=== PATIENT | female | born 1990 | race Caucasian/White ===

== ENCOUNTER 2017-05-30 16:54 | Inpatient (IN) | payer OTHER ==
[~2017-05-30] VITALS: Ht 162.7 cm; Wt 111.4 kg
[2017-06-15] VITALS (18 sets, daily range): BP systolic 96–136; BP diastolic 57–84; PULSE 51–106; TEMP 97.6–98
[2017-06-15] MEDS ORDERED: PRENATAL (06:44)
[2017-06-15 06:57] LABS: BASO % 0.3 % (0.0-2.0); EOS # 0.1 (0.0-0.7); EOS % 0.7 % (0-4.0); GRAN # 5.6 (1.4-6.5); GRAN % 73.2 % (42.2-75.2); HEMATOCRIT 35.2 % (37.0-47.0); HEMOGLOBIN 11.9 g/dl (12.5-16.0); LYMPH # 1.3 (1.2-3.4); LYMPH % 16.5 % (20.0-51.0); MEAN CELL VOLUME 85 fl (80.0-100.0); MEAN CORPUSCULAR HEMOGLOBIN 29 pg (27.0-31.0); MEAN CORPUSCULAR HGB CONC 34 g/dl (33.0-37.0); MEAN PLATELET VOLUME 10.9 fl (7.4-10.4); MONO # 0.6 (0.1-0.6); MONO % 8.2 % (1.7-9.3); PLATELET COUNT 191 K/mm3 (130-400); RED BLOOD COUNT 4.12 M/mm3 (4.10-5.30); REDCELL DISTRIBUTION WIDTH-CV 13.9 % (11.5-14.5)
[2017-06-16 00:50] VITALS: BP 117/71; PULSE 83; TEMP 97.8
[2017-06-16 08:06] VITALS: BP 109/67; PULSE 87; TEMP 97.5
[2017-06-16 16:38] VITALS: BP 125/68; PULSE 94; TEMP 97.4
[2017-06-16 20:20] VITALS: BP 122/55; PULSE 106; TEMP 99
[2017-06-17 05:04] VITALS: BP 109/64; PULSE 85; TEMP 97.8
[2017-06-17 07:50] VITALS: BP 128/71; PULSE 95; TEMP 97.9
[2017-06-17] MEDS ORDERED: IBU600 MG PO (09:43)
[2017-06-17] MEDS ORDERED: PERCOCET 325 MG1 TA2 PO (09:43)
== END 2017-06-17 11:50 | disposition home or self-care (01) | DRG 766 ==
LOC: OB 06-15 06:00 → LDR 06-15 07:06 → OB 06-17 11:50
PROVIDERS: Obstetrics & Gynecology
PROC: 10D00Z1 Extraction of Products of Conception, Low, Open Approach (ICD-10-PCS; principal; 2017-06-15)
DX: O34.211 Maternal care for low transverse scar from previous cesarean delivery (principal); N85.8 Other specified noninflammatory disorders of uterus; O99.824 Streptococcus B carrier state complicating childbirth; Z3A.39 39 weeks gestation of pregnancy; Z37.0 Single live birth
CPT/HCPCS: J0690; J2270; J2405; J2590; J7120